=== PATIENT | male | born 2000 | race Two or more races ===

== ENCOUNTER 2024-11-16 15:30 | Emergency (ER) | payer MEDICAID, SELFPAY ==
--- NOTE | 2024-11-16 15:37 | EKG_ITS ---
[facility] Test Date: 2024-11-16 Pat Name: JOE MELISSA Department: Room: - Gender: Male [employer] Developer: : 2000 Requested By: Gigi Shelley Order Number: [id number] Reading MD: Gigi Shelley Measurements Intervals [employer] Rate: 100 P: 60 TN: 128 QRS: 71 QRSD: 106 T: 30 QT: 333 QTc: 429 Interpretive Statements SINUS TACHYCARDIA ST ELEVATION, PROBABLY EARLY REPOLARIZATION [ST ELEVATION WITH NORMALLY INFLECTED T-WAVE] ABNORMAL RHYTHM ECG No previous ECG available for comparison /[id number]/[id number].pdf
[2024-11-16 15:43] VITALS: BP 133/83; PULSE 105; RESP 18; TEMP 36.4; O2SAT 96; BMI 25.0
--- NOTE | 2024-11-16 15:59 | XR_ITS ---
Examination: PA lateral chest 2 views Technique: Upright PA lateral chest 2 views Date and time: November 16, 2024, 1601 hrs. Indications: Chest pain shortness of breath today. Findings: Normal heart size. No aspiration pneumonia. The osseous structures are intact Impression: Negative for aspiration pneumonia.
--- NOTE | 2024-11-16 16:00 | PD.EDRME ---
Rapid Medical Screening Exam E Arrival date/time: 11/16/24 15:30 24-year-old male with no known medical history presents to the emergency room with a chief complaint of chest pain, palpitations, sweating, vomiting x 1 day. Patient states he is methamphetamine this morning. I have greeted and performed a focused initial assessment of this patient. A comprehensive ED assessment and evaluation of the patient, analysis of all test results, and completion of the medical decision making process will be conducted by additional ED providers. Chief Complaint: Nausea/Vomiting/Diarrhea Vital signs: Vital Signs Temperature 97.6 F 11/16/24 15:43 Pulse Rate 105 H 11/16/24 15:43 Respiratory Rate 18 11/16/24 15:43 Blood Pressure 133/83 H 11/16/24 15:43 Pulse Oximetry (%) 96 11/16/24 15:43 Oxygen Delivery Method Room Air 11/16/24 15:43 Vital signs reviewed by provider: Yes
[2024-11-16 16:28] LABS: Basophils # (Auto) 0.1 Thou/mm3 (0.0-0.2); Basophils % (Auto) 1 % (0-2.5); Eosinophils # (Auto) 0.1 Thou/mm3 (0.0-0.5); Eosinophils % (Auto) 1 % (0-10); Hematocrit 46.1 % (41.0-53.0); Hemoglobin 15.8 g/dL (13.5-16.0); Immature Granulocytes Auto 0.04 Thou/mm3 (0.00-0.00); Lymphocytes # (Auto) 2.1 Thou/mm3 (1.0-4.8); Lymphocytes % (Auto) 22 % (10-50); Mean Corpuscular HGB Conc 34.3 g/dl (31.0-37.0); Mean Corpuscular Hemoglobin 29.4 pg (25.0-35.0); Mean Corpuscular Volume 86 fL (80-100); Monocytes # (Auto) 0.7 Thou/mm3 (0.0-0.8); Monocytes % (Auto) 7 % (0-12); Neutrophils # (Auto) 6.7 Thou/mm3 (1.8-7.7); Neutrophils % (Auto) 70 % (37-80); Nucleated Red Blood Cell # 0.00 Thou/mm3 (0.00-0.00); Nucleated Red Blood Cell % 0 /100 WBC (0); Platelet Count 217 Thou/mm3 (140-440); RDW Standard Deviation 40.8 fL (35.1-43.9); Red Blood Count 5.38 Miln/mm3 (4.50-5.90); White Blood Count 9.6 Thou/mm3 (3.8-10.6)
[2024-11-16 16:46] LABS: INR 1.1 (0.9-1.3); Partial Thromboplastin Time 23.4 Seconds (22.0-36.0); Prothrombin Time 11.5 Seconds (9.0-12.2)
[2024-11-16 16:47] LABS: B-Type Natriuretic Peptide < 20 pg/mL (0-100)
[2024-11-16 16:50] LABS: Alanine Aminotransferase 18 U/L (10-49); Albumin, Serum 5.1 gm/dL (3.5-5.0); Albumin/Globulin Ratio 2.0 (1.2-2.2); Alkaline Phosphatase 69 U/L (46-116); Anion Gap 13 (7-16); Aspartate Amino Transferase 25 U/L (0-34); BUN/Creatinine Ratio 8 Ratio (12-20); Bilirubin,Total 0.8 mg/dL (0.3-1.2); Blood Urea Nitrogen 9 mg/dL (9-23); Calcium 10.7 mg/dL (8.3-10.6); Calcium (Corrected) 10.7 mg/dL (8.5-10.1); Carbon Dioxide 28.1 mMol/L (20.0-31.0); Chloride 99 mMol/L (98-107); Creatinine (Component) 1.2 mg/dL (0.6-1.3); Estimated Creatinine Clearance 89.5 mL/min (>60); Globulin 2.5 gm/dL (2.3-3.5); Glucose 157 mg/dL (74-106); Magnesium 2.1 mg/dL (1.6-2.6); Osmolality,Calculated 281 (275-295); Potassium 3.8 mMol/L (3.4-5.1); Sodium 140 mMol/L (136-145); Total Protein 7.6 gm/dL (5.7-8.2); Troponin I < 0.002 ng/mL (0.0-0.045); eGFR > 60 See Note
[2024-11-16 17:54] VITALS: BP 141/92; PULSE 83; RESP 18; TEMP 36.5; O2SAT 97
[2024-11-16 18:17] VITALS: BP 133/86; PULSE 91; RESP 19; TEMP 36.6; O2SAT 100
--- NOTE | 2024-11-16 18:58 | EDNOTE_ITS ---
Nausea/Vomit./Diarrhea-RME/HPI General Chief complaint: Nausea/Vomiting/Diarrhea Stated complaint: Vomiting, fever and chest pain Time Seen by Provider: 11/16/24 18:58 Arrival date/time: 11/16/24 15:30 RME / HPI RME / HPI Narrative: 11/16/24 15:30 24-year-old male with no known medical history presents to the emergency room with a chief complaint of chest pain, palpitations, sweating, vomiting x 1 day. Patient states he is methamphetamine this morning. I have greeted and performed a focused initial assessment of this patient. A comprehensive ED assessment and evaluation of the patient, analysis of all test results, and completion of the medical decision making process will be conducted by additional ED providers. -------- Dr. Nash?s Main ED Evaluation: 24yo male with no significant past medical h istory presents to the ED for complaints of palpitations, chest pain, and vomiting since yesterday. Patient admits to using methamphetamines this morning. Denies any other associated symptoms. Denies any other illicit drug use. NKDA. Related Data Allergies Allergy/AdvReac Type Severity Reaction Status Date / Time No Known Drug Allergies Allergy Verified 11/16/24 15:35 Review of Systems Review of Systems Systems Reviewed: All systems reviewed, normal except as documented Past Medical History Past Medical History CARDIAC: Negative Congestive Heart Failure RESPIRATORY: Negative Chronic Obstructive Pulmonary Disease (COPD) GENITOURINARY: Negative Renal Disease ENDOCRINE: Negative Diabetes Mellitus Type 1 or Diabetes Mellitus Type 2 Social History SMOKING STATUS: Never smoker ED Exam Narrative Physical exam: Generally patient is alert and in no obvious distress, heart borderline t achycardic at a heart rate of 100 with regular rhythm, lungs clear to auscultation equal bilaterally, abdomen soft bowel sounds present nondistended nontender, skin is warm pale and dry, neurologic exam no focal motor or sensory deficits cranial nerves II through XII grossly intact with Erik Coma Scale of 15 Course Course Course Narrative: CXR is ordered for determining the etiology of palpitations. Quality Measures none Orders Category Date Time Status EKG (ED ONLY) *Do not use* NOW Care 11/16/24 15:37 Completed EKG (ED Only) Stat Exams 11/16/24 15:37 Draft XR chest 2V Stat Exams 11/16/24 15:59 Completed B-Type Natriuretic Peptide Stat Lab 11/16/24 16:13 Completed CBC Stat Lab 11/16/24 16:13 Completed Comprehensive Metabolic Panel Stat Lab 11/16/24 16:13 Completed Drug Screen,Urine Stat Lab 11/16/24 15:59 Ordered Magnesium Stat Lab 11/16/24 16:13 Completed Partial Thromboplastin Time Stat Lab 11/16/24 16:13 Completed Prothrombin Time with INR Stat Lab 11/16/24 16:13 Completed Troponin I Stat Lab 11/16/24 16:13 Completed Urinalysis, C/S if Indicated Stat Lab 11/16/24 15:59 Ordered Vital Signs Vital signs: Vital Signs Temperature 97.6 F 11/16/24 15:43 Pulse Rate 105 H 11/16/24 15:43 Respiratory Rate 18 11/16/24 15:43 Blood Pressure 133/83 H 11/16/24 15:43 Pulse Oximetry (%) 96 11/16/24 15:43 Oxygen Delivery Method Room Air 11/16/24 15:43 Nausea/Vomiting/Diarrhea MDM Narrative MDM Narrative:: Scribe Attestation: 11/16/24 Meli Cooper am scribing for and in the presence of Dr. Nash. Patient did methamphetamine this morning. EKG showed sinus tachycardia at a rate of 100 without ischemic change or ectopy. Intervals were normal. Troponin is not elevated. Chest x-ray is normal. Patient was experiencing palpitations with very little chest pain. I do not believe this 24-year-old to be suffering from an acute coronary syndrome or ischemic pain. He is avoid methamphetamine in the future. Patient data External records reviewed:: [facility] previous records (Per chart review, patient has no previous ED visits or admissions to this facility.) Clinical information provided by:: patient Social determinants that could affect healthcare access:: none Patient has the following chronic illnesses:: none How is presenting disease/condition affected by chronic disease/condition?: no chronic disease Evaluation data The following diagnostics were reviewed and interpreted by me:: lab results, radiology exam(s) and EKG tracing(s) Lab and/or radiology exams considered but not ordered:: none Interpretation Summary: [facility] Report Signed Patient: JOE MELISSA Record#: [id number] Birthdate: 2000 Age/Sex: 24 / M Location: [facility] Attending Dr: Ordering Physician: Gigi Lao Date of Service: 11/16/24 Procedure(s): XR chest 2V Accession Number(s): [id number] cc: Gigi Lao; Kenrick Moreira MD; NO PRIMARY/FAMILY,PHYSICIAN~ Examination: PA lateral chest 2 views Technique: Upright PA lateral chest 2 views Date and time: November 16, 2024, 1601 hrs. Indications: Chest pain shortness of breath today. Findings: Normal heart size. No aspiration pneumonia. The osseous structures are intact Impression: Negative for aspiration pneumonia. Dictated By: Kenrick Moreira MD Signed By: <Electronically signed by Kenrick Moreira MD in OV> 11/16/24 1719 Medications / Prescriptions Medications / Prescriptions considered but not ordered:: none Medication administrations:: none Consultations Consultation(s) initiated? (list below): No Diagnosis Nausea Differential Diagnosis: other (See MDM.) Most likely diagnosis given after review of the tests above:: see clinical impression below Admission Indicated Admission indicated?: not indicated Admission Request Was there a request for admission?: No Disposition Plan Disposition Plan: Discharge Discharge Attestation Discharge Attestation: The patient and all family members were given an opportunity to ask questions and understood the discharge instructions. Discharge instructions specifically effects, indications for sooner follow up or return to the emergency department, and the expected course of current diagnosis. Patient condition: Stable Discharge Plan Plan Patient Disposition: HOME (Self Care) Prescriptions/Referrals Referrals: No Primary/Family,Physician [Primary Care Provider] - In 1 week Problem List Clinical Impression: Palpitations, Methamphetamine abuse Patient/Caregiver Discharge Instructions Education Materials: ED Drug Abuse, ED Palpitations Additional Instructions: Avoid methamphetamine in the future. Print Language: Lithuanian Stand Alone Forms: [facility] Award Info., Patient Portal Info Letter
[2024-11-16 19:40] VITALS: BP 145/99; PULSE 89; RESP 14; TEMP 37; O2SAT 99
== END 2024-11-16 19:41 | disposition home or self-care (01) ==
PROVIDERS: Nurse Practitioner Family; Emergency Provider Emergency Medicine
DX: R00.2 Palpitations (principal); F15.10 Other stimulant abuse, uncomplicated; R00.0 Tachycardia, unspecified; R07.9 Chest pain, unspecified; R06.02 Shortness of breath
CPT/HCPCS: 36415; 71046; 80053; 80307; 81001; 83735; 83880; 84484; 85025; 85610; 85730; 93005; 99283